=== PATIENT | male | born 1980 | race African-American/Black ===

== ENCOUNTER 2024-05-22 23:16 | Emergency (ER) | payer SELFPAY ==
[~2024-05-22] VITALS: Ht 180.3 cm; Wt 69.3 kg
[2024-05-22 23:23] VITALS: PULSE 118; O2SAT 96
[2024-05-22 23:24] VITALS: BP 140/84; RESP 22; TEMP 98.5; O2SAT 100
[2024-05-22] MEDS ORDERED: VIST25 MT (23:48)
[2024-05-22] MEDS ORDERED: KEPP500 MT (23:48)
[2024-05-22] MEDS ORDERED: QUET100T MT (23:48)
== END 2024-05-23 00:10 | disposition home or self-care (01) ==
LOC: ER 23:16
DX: G40.909 Epilepsy, unspecified, not intractable, without status epilepticus (principal); F12.10 Cannabis abuse, uncomplicated; F20.9 Schizophrenia, unspecified; Z79.899 Other long term (current) drug therapy; Z76.0 Encounter for issue of repeat prescription
CPT/HCPCS: 99281

== ENCOUNTER 2024-08-11 21:41 | Emergency (ER) | payer MEDICAID ==
[~2024-08-11] VITALS: Ht 177.8 cm; Wt 68.0 kg
[2024-08-11] MEDS: QUETIAPINE FUMARATE 50MG TABLET PO SCH (00:10)
[~2024-08-11 21:41] MED LIST: KEPP500 MT; QUET100T MT; VIST25 MT
[2024-08-11 22:11] VITALS: O2SAT 100
[2024-08-11 23:32] LABS: CHLORIDE 107 mEq/L (98-107); POTASSIUM 4.1 mEq/L (3.5-5.1); SODIUM 142 mEq/L (136-145)
[2024-08-11 23:33] LABS: CARBON DIOXIDE 31 mEq/L (21-32)
[2024-08-11 23:38] LABS: CREATININE 1.1 mg/dL (0.6-1.3); GLUCOSE 72 mg/dL (70-105); UREA NITROGEN BLOOD 9 mg/dL (9-23)
[2024-08-11 23:39] LABS: BASOPHILS % 1.1 % (0.0-2.0); EOSINOPHILS % 2.9 % (0.0-5.0); HEMATOCRIT. 42.6 % (42.0-52.0); LYMPHOCYTES % 22.1 % (20.0-50.0); MEAN CORPUSCULAR HEMOGLOBIN 27.3 pg (28.0-32.0); MEAN CORPUSCULAR HGB CONC 32.8 g/dL (31.0-37.0); MEAN CORPUSCULAR VOLUME 83.3 fL (80.0-94.0); MEAN PLATELET VOLUME 7.8 fl (7.4-10.4); MONOCYTES % 8.6 % (2.0-8.0); NEUTROPHILS % 65.3 % (40.0-76.0); PLATELET 369 x1000/uL (130-400); RED BLOOD CELL COUNT 5.12 mill/uL (4.7-6.1); RED CELL DISTRIBUTION WIDTH 17.2 % (11.6-14.6); WHITE BLOOD COUNT 5.8 x1000/uL (4.5-11.0)
[2024-08-11 23:40] LABS: ACETAMINOPHEN < 2 ug/mL (10-30)
[2024-08-11 23:46] LABS: ETHANOL BLOOD < 10 mg/dL (<10)
[2024-08-12 00:43] LABS: *AMPHETAMINES SCREEN URINE PRESUMPTIVE POSITIVE (NEGATIVE); CLARITY URINE CLEAR (CLEAR); COLOR URINE YELLOW (YELLOW); GLUCOSE URINE NEGATIVE (NEGATIVE); KETONES URINE NEGATIVE (NEGATIVE); LEUKOCYTE ESTERASE URINE NEGATIVE (NEGATIVE); NITRITE URINE NEGATIVE (NEGATIVE); OCCULT BLOOD URINE NEGATIVE (NEGATIVE); PROTEIN URINE NEGATIVE (NEGATIVE); SPECIFIC GRAVITY URINE 1.006 (1.005-1.030); UROBILINOGEN URINE 0.2 E.U./dL (0.2-1.0)
[2024-08-12 00:44] LABS: *BARBITURATES SCREEN URINE NEGATIVE (NEGATIVE); *BENZODIAZEPINES SCREEN URINE NEGATIVE (NEGATIVE); *COCAINE SCREEN URINE NEGATIVE (NEGATIVE); CANNABINOID URINE SCREEN PRESUMPTIVE POSITIVE (NEGATIVE); ECSTASY MDMA SCREEN URINE NEGATIVE (NEGATIVE); METHADONE URINE SCREEN NEGATIVE (NEGATIVE); OPIATES URINE SCREEN NEGATIVE (NEGATIVE); PHENCYCLIDINE URINE SCREEN NEGATIVE (NEGATIVE)
[2024-08-12] MEDS: HALOPERIDOL LACTATE 5MG/ML VIAL IM ONE (02:02)
[2024-08-12] MEDS: DIPHENHYDRAMINE 50MG/ML VIAL IM ONE (02:02)
[2024-08-12] MEDS: LORAZEPAM 2MG/ML INJ IM ONE (02:02)
[2024-08-12 08:53] VITALS: BP 111/67; PULSE 86; RESP 17; TEMP 36.66960; O2SAT 100
== END 2024-08-12 08:53 | disposition home or self-care (01) ==
LOC: ER 21:41
DX: R45.851 Suicidal ideations (principal); R44.1 Visual hallucinations; R44.0 Auditory hallucinations; F17.210 Nicotine dependence, cigarettes, uncomplicated; F12.10 Cannabis abuse, uncomplicated; F15.10 Other stimulant abuse, uncomplicated; Z79.899 Other long term (current) drug therapy; Z20.822 Contact with and (suspected) exposure to COVID-19
CPT/HCPCS: 80305; 80048; 81003; 80307; 80329; 80320; 85025; 36415; 99285; 87426; 96372; Z7610; J1200; J1630; J2060; G0480

== ENCOUNTER 2025-02-23 13:15 | Emergency (ER) | payer MEDICAID ==
[~2025-02-23] VITALS: Ht 177.8 cm; Wt 77.0 kg
[2025-02-23 13:25] VITALS: O2SAT 100
[2025-02-23 19:00] LABS: BASOPHILS % 0.5 % (0.0-2.0); EOSINOPHILS % 1.4 % (0.0-5.0); HEMATOCRIT. 45.9 % (42.0-52.0); HEMOGLOBIN. 15.6 g/dL (14.0-18.0); LYMPHOCYTES % 20.4 % (20.0-50.0); MEAN PLATELET VOLUME 7.8 fl (7.4-10.4); MONOCYTES % 13.0 % (2.0-8.0); NEUTROPHILS % 64.7 % (40.0-76.0); PLATELET 302 x1000/uL (130-400); RED BLOOD CELL COUNT 5.73 mill/uL (4.7-6.1); RED CELL DISTRIBUTION WIDTH 18.0 % (11.6-14.6)
[2025-02-23] MEDS: OLANZAPINE 5MG TABLET ODT PO ONE (19:00)
[2025-02-23 19:16] LABS: CREATININE 1.4 mg/dL (0.6-1.3); ETHANOL BLOOD < 10 mg/dL (<10); UREA NITROGEN BLOOD 12 mg/dL (9-23)
[2025-02-24 04:25] LABS: CLARITY URINE CLEAR (CLEAR); COLOR URINE YELLOW (YELLOW); GLUCOSE URINE NEGATIVE (NEGATIVE); KETONES URINE TRACE (NEGATIVE); LEUKOCYTE ESTERASE URINE NEGATIVE (NEGATIVE); NITRITE URINE NEGATIVE (NEGATIVE); OCCULT BLOOD URINE NEGATIVE (NEGATIVE); PH URINE 5.5 (4.5-8.0); PROTEIN URINE TRACE (NEGATIVE); SPECIFIC GRAVITY URINE 1.019 (1.005-1.030); UROBILINOGEN URINE 1.0 E.U./dL (0.2-1.0)
[2025-02-24 04:29] LABS: *AMPHETAMINES SCREEN URINE PRESUMPTIVE POSITIVE (NEGATIVE)
[2025-02-24 04:30] LABS: *BARBITURATES SCREEN URINE NEGATIVE (NEGATIVE); *BENZODIAZEPINES SCREEN URINE NEGATIVE (NEGATIVE); *COCAINE SCREEN URINE NEGATIVE (NEGATIVE); CANNABINOID URINE SCREEN PRESUMPTIVE POSITIVE (NEGATIVE); ECSTASY MDMA SCREEN URINE CONF.TEST INDICATED (NEGATIVE); METHADONE URINE SCREEN NEGATIVE (NEGATIVE); OPIATES URINE SCREEN NEGATIVE (NEGATIVE); PHENCYCLIDINE URINE SCREEN NEGATIVE (NEGATIVE)
[2025-02-24 04:48] LABS: SQUAMOUS EPITHELIAL CELL URINE NONE SEEN /lpf (RARE/1+); WBC URINE 0-2 /hpf (0-2)
[2025-02-24 04:49] LABS: RBC URINE 0-2 /hpf (0-2)
[2025-02-24 04:52] LABS: BACTERIA URINE NONE SEEN
[2025-02-24 06:00] VITALS: BP 145/88; PULSE 111; RESP 16; TEMP 37.7; O2SAT 100
[2025-02-24] MEDS ORDERED: QUETIAPINE FUMARATE 50MG TABLET PO SCH (11:30)
== END 2025-02-24 11:43 | disposition left against medical advice (07) ==
LOC: ER 13:15
DX: R45.851 Suicidal ideations (principal); F20.9 Schizophrenia, unspecified; F32.A Depression, unspecified; F41.0 Panic disorder [episodic paroxysmal anxiety]; F12.90 Cannabis use, unspecified, uncomplicated; F15.90 Other stimulant use, unspecified, uncomplicated; F19.90 Other psychoactive substance use, unspecified, uncomplicated; R06.02 Shortness of breath; Z59.00 Homelessness unspecified; Z79.899 Other long term (current) drug therapy; Z91.148 Patient's other noncompliance with medication regimen for other reason; Z20.822 Contact with and (suspected) exposure to COVID-19
CPT/HCPCS: 36415; 80048; 80305; 80307; 80320; 80329; 81003; 85025; 87426; 99285; G0480